=== PATIENT | male | born 1990 | race Caucasian/White ===

== ENCOUNTER 2019-08-25 12:37 | Emergency (ER) | payer OTHER ==
[~2019-08-25] VITALS: Ht 172.7 cm; Wt 70.3 kg
[2019-08-25] MEDS ORDERED: TRILEPTAL600 MG PO (14:36)
[2019-08-25] MEDS ORDERED: ABILIFY30 MG PO (14:36)
[2019-08-25] MEDS ORDERED: CLONAZEPAM0.5 M1 PO (14:37)
== END 2019-08-25 18:48 | disposition home or self-care (01) ==
LOC: ER 12:37
DX: B34.9 Viral infection, unspecified (principal)